=== PATIENT | female | born 1945 | race Caucasian/White ===

== ENCOUNTER 2016-06-24 13:11 | Emergency (ER) | payer OTHER ==
--- NOTE | 2016-06-24 14:08 | ED NURSING NOTES ---
Clinical Report - Nurses [place] [address] [place] [address] 06/24/2016 13:12 [id number] Triage time 13:15 Jun 24 2016. Acuity: LEVEL 3. Chief Complaint: (Hip and (R) Leg Pain). Alert. SEPSIS SCREEN: Sepsis Screen. Negative (no infection suspected/documented). TOMASZ COMA SCORE: Tomasz Coma Scale: 15- eyes open spontaneously (4); best verbal response- oriented x 4 (5); best motor response- obeys commands (6). --13:37 Pedro Cornejo R.N. 13:24 06/24/16. BP: 152/80. HR: 80. RR: 16. O2 saturation: 99%. Temp: 99 F. Pain level now: 08/16. --13:37 Pedro Cornejo R.N. Weight: 48.5 kg stated. Height/Length: 61 inches Per Patient. BMI: 20.2. --13:23 Pedro Cornejo R.N. Medications Albuterol-Ipratropium Inhalation, prn. Carvedilol Oral, daily. --13:26 Pedro Cornejo R.N. Lisinopril Oral. Motrin Oral 400 mg, as needed. Zofran Oral, as needed. --13:26 Pedro Cornejo R.N. Imuran Oral 100 mg, daily. --13:26 Pedro Cornejo R.N. Potassium Chloride Oral 10 meq, 3 x weekly. --13:26 Pedro Cornejo R.N. Hydrochlorothiazide Oral 25 mg, daily. --13:27 Pedro Cornejo R.N. Allergies Penicillins. Definite Moderate(hives, SOB) --13:26 Pedro Cornejo R.N. Medication/allergy information source: the patient. --13:37 Pedro Cornejo R.N. History Arrived by private vehicle. Historian: patient. Accompanied by family. Primary physician (Shravan Elias). ( Hip and (R) Leg Pain, which pt attributes to a strain about one week ago when she was trying to move a heavy chicken coop.). Onset. (about 1 week ago). She has had trouble walking. She has had moderate right leg pain. History of recent trauma (moderate)- lifting injury (since 1 week ago). Occurred at home. 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 Symptoms did not improve after treatment. PAST MEDICAL HX: Tetanus status: up-to-date. Immunizations: has received pneumonia vaccine. The patient has had a hysterectomy. SOCIAL HX: Never smoker. No alcohol use or drug use. No infectious disease exposure. ABUSE ASSESSMENT: No report of abuse. FALL RISK ASSESSMENT: Fall risk assessment completed. No fall risk identified. NUTRITIONAL RISK ASSESSMENT: The nutritional risk assessment revealed no deficiencies. FUNCTIONAL ASSESSMENT: Functional assessment: no impairments noted. LEARNING NEEDS ASSESSMENT: The learning needs assessment revealed no barriers. SKIN INTEGRITY ASSESSMENT: Skin integrity risk assessment completed. No skin integrity risk identified. --13:37 Pedro Cornejo R.N. PROBLEMS: Mucous Membrane Pemphigoid (autoimmune disease). Hypokalemia. Neutropenia. Hypertension. Immunizations. Asthma. Mucous membrane disease with ocular involvement. Multiple Sclerosis. --13:31 Pedro Cornejo R.N. ADDITIONAL SURGERIES: Adenoidectomy. Appendectomy. Hysterectomy. Oophorectomy. Salpingectomy. Tonsillectomy. --13:31 Pedro Cornejo R.N. Interventions ID band on patient. To treatment room. --13:37 Pedro Cornejo R.N. PHYSICAL ASSESSMENT Ambulatory to room. GENERAL / NEURO / PSYCH: Alert. Oriented X 4. Appears in pain. RESPIRATORY: Respirations not labored. CVS: Normal heart rate and rhythm. GI / : Abdomen soft. Bowel sounds within normal limits. EXTREMITIES: Sensation intact in extremities. ROM of extremities within normal limits. --13:38 Pedro Cornejo R.N. NURSING PROGRESS NOTES Patient gowned. Reassurance given. Patient identifiers checked. Call light placed in reach. Side rails up. Bed placed in lowest position. Brakes of bed on. Patient ready for evaluation- chart flagged and PA notified. --13:38 Pedro Cornejo R.N. 13:41 06/24/2016 Hydrocodone-APAP (Hydrocodone-Acetaminophen) PO 5/325 mg Tablets 2 tab given. Allergies verified, confirmed 5 rights and sedative warning given to the patient. --13:56 Pedro Cornejo R.N. DISPOSITION / DISCHARGE Departure time: 1420. --14:57 Pedro Cornejo R.N. 14:15 06/24/16. BP: 159/79. HR: 81. RR: 16. O2 saturation: 96% on room air. Temp: 98.9 F (oral). Pain level now: 05/16. --14:59 Pedro Cornejo R.N. 14:20. Condition at departure: improved. No learning barriers present. Discharge instructions provided and reviewed with the patient. Reviewed medication(s) dosing information (prescription given to pt). Reviewed referral to family practice for followup. Patient verbalized understanding. Written instructions provided in Tongan. The patient was discharged by the physician. She was discharged home and accompanied by family. She left the Emergency Department ambulatory and via private vehicle. Family member driving. --15:01 Pedro Cornejo R.N. Locked/Released at 06/24/2016 15:01 by Pedro Cornejo R.N.
--- NOTE | 2016-06-24 14:08 | ED ORDER SUMMARY ---
..... Patient: LO OROZCO OrderSheet [facility] VisitID: [id number] [address] [place] [address] 71y, F Registration Date/Time: 06/24/2016 ORDER SHEET Weight: 48.5 kg (stated) Allergies: Penicillins GENERAL ORDERS: MEDICATION ORDERS: Hydrocodone-APAP PO 10/650 mg (NOW, HIGH ALERT MEDICATION) (13:41 06/24/2016 Rajwinder Pulido) (13:56 Chauncey Fowler) IV FLUIDS: ORDER SHEET NOTES: [Electronically signed by Pedro Cornejo R.N. (15:01 06/24/2016)] [Electronically signed by Dahlia Sandoval P.A.-C (16:16 06/24/2016)] [Electronically locked/signed by Pedro Cornejo R.N. (15:01 06/24/2016)]
--- NOTE | 2016-06-24 14:08 | ED ORDER SUMMARY ---
..... Patient: LO OROZCO OrderSheet [facility] VisitID: [id number] [address] [place] [address] 71y, F Registration Date/Time: 06/24/2016 ORDER SHEET Weight: 48.5 kg (stated) Allergies: Penicillins GENERAL ORDERS: MEDICATION ORDERS: Hydrocodone-APAP PO 10/650 mg (NOW, HIGH ALERT MEDICATION) (13:41 06/24/2016 Rajwinder Pulido) (13:56 Chauncey Fowler) IV FLUIDS: ORDER SHEET NOTES: [Electronically signed by Pedro Cornejo R.N. (15:01 06/24/2016)] [Electronically signed by Dahlia Sandoval P.A.-C (16:16 06/24/2016)] [Electronically locked/signed by Pedro Cornejo R.N. (15:01 06/24/2016)]
--- NOTE | 2016-06-24 14:08 | ED CLINICAL REPORT ---
Clinical Report - Physicians/Mid Levels [facility] [address] [place] [address] 06/24/2016 13:12 Patient: LO OROZCO Time Seen: 13:53 Jun 24 2016. Arrived- By private vehicle. Historian- patient. HISTORY OF PRESENT ILLNESS Chief Complaint: BACK PAIN. Onset- 1 weeks and it is still present. It is described as being in the area of the right lower lumbar spine and radiating (paresthesias to posterior aspect of leg, into great toe). The location is not the right SI joint area. The quality is noted to be "pain". No bladder dysfunction, bowel dysfunction, sensory loss or motor loss. Additional history - Lifting injury 7 days prior now with pain since incident for 7 days. reports pain radiates to the lower aspect. Pain worsens with movement. No diff urinating. Patient notes an injury. REVIEW OF SYSTEMS No fever, difficulty with urination, urinary frequency, sore throat or cough. No chest pain, abdominal pain, nausea or diarrhea. All systems otherwise negative, except as recorded above. PAST HISTORY Has not had prior back pain. Problems: Mucous Membrane Pemphigoid (autoimmune disease). Hypokalemia. Fever. Neutropenia. Hypertension. Immunizations. Asthma. Mucous membrane disease with ocular involvement. Diabetes Mellitus. Multiple Sclerosis. Additional Surgeries: Adenoidectomy. Appendectomy. Hysterectomy. Oophorectomy. Salpingectomy. Tonsillectomy. Medications: Hydrochlorothiazide Oral 25 mg, daily. Potassium Chloride Oral 10 meq, 3 x weekly. Imuran Oral 100 mg, daily. Lisinopril Oral. Motrin Oral 400 mg, as needed. Zofran Oral, as needed. Albuterol-Ipratropium Inhalation, prn. Carvedilol Oral, daily. Allergies: Penicillins. Definite Moderate(hives, SOB). SOCIAL HISTORY Never smoker. No alcohol use or drug use. ADDITIONAL NOTES The nursing notes have been reviewed. PHYSICAL EXAM Vital Signs: 06/24/2016 13:24 BP: 152/80. HR: 80. RR: 16. O2 saturation: 99%. Temp: 99 F. Pain level now: 08/16. Appearance: Alert. Neck: Normal inspection. Neck nontender. CVS: Heart sounds normal. Pulses normal. Respiratory: No respiratory distress. Breath sounds normal. Abdomen: No visible injury. No abdominal tenderness or rebound tenderness. Back: Soft tissue tenderness. No vertebral point tenderness, CVA tenderness or limitation in ROM. Skin: Skin warm. Neuro: Oriented X 3. Mood/affect normal. No motor deficit. No sensory deficit. Reflex exam: right patellar 2+, left patellar 2+, right Achilles 2+ and left Achilles 2+. Normal gait. PROGRESS AND PROCEDURES Course of Care: patient with pain ongoing over the last almost 2 weeks, as referred her daughter, has previously been seen with her PCP, the paresthesias has developed over the last 7 days. She has no saddle anesthesia. Good distal sensation. Good distal reflexes. Be on her diabetes and advanced age, no otherwise red flags. No recent fall or trauma, to suspect fracture. At this time patient can refer to follow-up with her primary care provider. There are no risks for spinal epidural abscess or hematoma as patient is without any risk factors such as IVDA or evidence of active infection, no midline tenderness to percussion. Hence I do not feel emergent imaging with an MRI is indicated. However I did discuss with the patient that if these symptoms develop, or if the pain does not resolve an MRI may need to be done outpatient, or in the ED if symptoms worsen acutely or new onset of the above mentioned symptoms develop. Patient is stable. CLINICAL IMPRESSION Acute lumbar strain. INSTRUCTIONS Apply ice. Prescription Medications: Hydrocodone/APAP 7.5mg / 325mg: take 1 orally every 6 hours as needed for pain. Dispense fifteen (15). No refill. Flexeril 10 mg: take 1 orally every 8 hours for 3 days as needed for muscle spasm. Dispense ten (10). No refills. Substitution is permissible. Follow-up: Follow up with your doctor Thursday as needed. (Electronically signed by Dahlia Sandoval P.A.-C 06/24/2016 16:16)
--- NOTE | 2016-06-24 14:08 | ED NURSING NOTES ---
Clinical Report - Nurses [place] [address] [place] [address] 06/24/2016 13:12 [id number] Triage time 13:15 Jun 24 2016. Acuity: LEVEL 3. Chief Complaint: (Hip and (R) Leg Pain). Alert. SEPSIS SCREEN: Sepsis Screen. Negative (no infection suspected/documented). TOMASZ COMA SCORE: Tomasz Coma Scale: 15- eyes open spontaneously (4); best verbal response- oriented x 4 (5); best motor response- obeys commands (6). --13:37 Pedro Cornejo R.N. 13:24 06/24/16. BP: 152/80. HR: 80. RR: 16. O2 saturation: 99%. Temp: 99 F. Pain level now: 08/16. --13:37 Pedro Cornejo R.N. Weight: 48.5 kg stated. Height/Length: 61 inches Per Patient. BMI: 20.2. --13:23 Pedro Cornejo R.N. Medications Albuterol-Ipratropium Inhalation, prn. Carvedilol Oral, daily. --13:26 Pedro Cornejo R.N. Lisinopril Oral. Motrin Oral 400 mg, as needed. Zofran Oral, as needed. --13:26 Pedro Cornejo R.N. Imuran Oral 100 mg, daily. --13:26 Pedro Cornejo R.N. Potassium Chloride Oral 10 meq, 3 x weekly. --13:26 Pedro Cornejo R.N. Hydrochlorothiazide Oral 25 mg, daily. --13:27 Pedro Cornejo R.N. Allergies Penicillins. Definite Moderate(hives, SOB) --13:26 Pedro Cornejo R.N. Medication/allergy information source: the patient. --13:37 Pedro Cornejo R.N. History Arrived by private vehicle. Historian: patient. Accompanied by family. Primary physician (Shravan Elias). ( Hip and (R) Leg Pain, which pt attributes to a strain about one week ago when she was trying to move a heavy chicken coop.). Onset. (about 1 week ago). She has had trouble walking. She has had moderate right leg pain. History of recent trauma (moderate)- lifting injury (since 1 week ago). Occurred at home. 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 Symptoms did not improve after treatment. PAST MEDICAL HX: Tetanus status: up-to-date. Immunizations: has received pneumonia vaccine. The patient has had a hysterectomy. SOCIAL HX: Never smoker. No alcohol use or drug use. No infectious disease exposure. ABUSE ASSESSMENT: No report of abuse. FALL RISK ASSESSMENT: Fall risk assessment completed. No fall risk identified. NUTRITIONAL RISK ASSESSMENT: The nutritional risk assessment revealed no deficiencies. FUNCTIONAL ASSESSMENT: Functional assessment: no impairments noted. LEARNING NEEDS ASSESSMENT: The learning needs assessment revealed no barriers. SKIN INTEGRITY ASSESSMENT: Skin integrity risk assessment completed. No skin integrity risk identified. --13:37 Pedro Cornejo R.N. PROBLEMS: Mucous Membrane Pemphigoid (autoimmune disease). Hypokalemia. Neutropenia. Hypertension. Immunizations. Asthma. Mucous membrane disease with ocular involvement. Multiple Sclerosis. --13:31 Pedro Cornejo R.N. ADDITIONAL SURGERIES: Adenoidectomy. Appendectomy. Hysterectomy. Oophorectomy. Salpingectomy. Tonsillectomy. --13:31 Pedro Cornejo R.N. Interventions ID band on patient. To treatment room. --13:37 Pedro Cornejo R.N. PHYSICAL ASSESSMENT Ambulatory to room. GENERAL / NEURO / PSYCH: Alert. Oriented X 4. Appears in pain. RESPIRATORY: Respirations not labored. CVS: Normal heart rate and rhythm. GI / : Abdomen soft. Bowel sounds within normal limits. EXTREMITIES: Sensation intact in extremities. ROM of extremities within normal limits. --13:38 Pedro Cornejo R.N. NURSING PROGRESS NOTES Patient gowned. Reassurance given. Patient identifiers checked. Call light placed in reach. Side rails up. Bed placed in lowest position. Brakes of bed on. Patient ready for evaluation- chart flagged and PA notified. --13:38 Pedro Cornejo R.N. 13:41 06/24/2016 Hydrocodone-APAP (Hydrocodone-Acetaminophen) PO 5/325 mg Tablets 2 tab given. Allergies verified, confirmed 5 rights and sedative warning given to the patient. --13:56 Pedro Cornejo R.N. DISPOSITION / DISCHARGE Departure time: 1420. --14:57 Pedro Cornejo R.N. 14:15 06/24/16. BP: 159/79. HR: 81. RR: 16. O2 saturation: 96% on room air. Temp: 98.9 F (oral). Pain level now: 05/16. --14:59 Pedro Cornejo R.N. 14:20. Condition at departure: improved. No learning barriers present. Discharge instructions provided and reviewed with the patient. Reviewed medication(s) dosing information (prescription given to pt). Reviewed referral to family practice for followup. Patient verbalized understanding. Written instructions provided in Malagasy. The patient was discharged by the physician. She was discharged home and accompanied by family. She left the Emergency Department ambulatory and via private vehicle. Family member driving. --15:01 Pedro Cornejo R.N. Locked/Released at 06/24/2016 15:01 by Pedro Cornejo R.N.
--- NOTE | 2016-06-24 16:16 | ED MAR SUMMARY ---
..... Medication Administration Record [facility] [address] [place] [address] Patient: LO OROZCO Visit ID: [id number] 71y, F Weight: 48.5 kg Height/Length: 61 in BMI: 20.2 ALLERGIES: Penicillins Given 13:41 06/24/2016 Pedro Cornejo R.N. Medication Administered: HYDROCODONE-APAP [PO] (HYDROCODONE-ACETAMINOPHEN), Dose: 2 tab 5/325 mg Tablets PO. Medication Ordered: Hydrocodone-APAP PO 10/650 mg (NOW, HIGH ALERT MEDICATION).
--- NOTE | 2016-06-24 16:16 | ED MAR SUMMARY ---
..... Medication Administration Record [facility] [address] [place] [address] Patient: LO OROZCO Visit ID: [id number] 71y, F Weight: 48.5 kg Height/Length: 61 in BMI: 20.2 ALLERGIES: Penicillins Given 13:41 06/24/2016 Pedro Cornejo R.N. Medication Administered: HYDROCODONE-APAP [PO] (HYDROCODONE-ACETAMINOPHEN), Dose: 2 tab 5/325 mg Tablets PO. Medication Ordered: Hydrocodone-APAP PO 10/650 mg (NOW, HIGH ALERT MEDICATION).
--- NOTE | 2016-06-24 16:16 | ED MED RECONCILIATION SUMMARY ---
Patient: LO OROZCO Medication Reconciliation Report [facility] VisitID: [id number] [address] [place] [address] 71y, F Registration Date/Time: 06/24/2016 Weight: 48.5 kg Height/Length: 61 in. BMI: 20.2 ALLERGIES: Penicillins The patient's Home Medications are listed below: THE FOLLOWING MEDICATIONS NEED TO BE RECONCILED: Albuterol-Ipratropium Inhalation, prn Carvedilol Oral, daily Hydrochlorothiazide Oral 25 mg, daily Imuran Oral 100 mg, daily Lisinopril Oral Motrin Oral 400 mg Potassium Chloride Oral 10 meq, 3 x weekly Zofran Oral The source(s) of the original Home Medication information: patient The following Medications were given to the patient in the Emergency Department: Hydrocodone-APAP [PO] PO 2 tab, administered: 06/24/2016 1:41:00 PM The following Medications were prescribed to the patient: Hydrocodone/APAP 7.5mg / 325mg: take 1 orally every 6 hours as needed for pain. Dispense fifteen (15). No refill. -- Dahlia Sandoval, P.A.-C Flexeril 10 mg: take 1 orally every 8 hours for 3 days as needed for muscle spasm. Dispense ten (10). No refills. Substitution is permissible. -- Dahlia Sandoval, P.A.-C
--- NOTE | 2016-06-24 16:16 | ED DISCHARGE INSTRUCTIONS ---
Patient: LO OROZCO General Instructions [facility] VisitID: [id number] [place] [address] 71y, F Registration Date/Time: 06/24/2016 Acute lumbar strain. INSTRUCTIONS Apply ice. Prescription Medications: Hydrocodone/APAP 7.5mg / 325mg: take 1 orally every 6 hours as needed for pain. Dispense fifteen (15). No refill. Flexeril 10 mg: take 1 orally every 8 hours for 3 days as needed for muscle spasm. Dispense ten (10). No refills. Substitution is permissible. Follow-up: Follow up with your doctor Thursday as needed. ADDITIONAL INFORMATION Sciatica Sciatica ("Lumbar Radiculopathy") causes a pain that spreads from the lower back down into the buttock, hip and leg. Sometimes leg pain can occur without any back pain. Sciatica is due to irritation or pressure on a spinal nerve as it comes out of the spinal canal. This is most often due to a bulge or rupture of a nearby spinal disk (the cartilage cushion between each spinal bone), which presses on a nearby nerve. Other causes include spinal stenosis (narrowing of the spinal canal) and spasm of the pyriform muscle (a muscle in the buttocks that the sciatic nerve passes through). Sciatica may begin after a sudden twisting/bending force (such as in a car accident), or sometimes after a simple awkward movement. In either case, muscle spasm is commonly present and contributes to the pain. The diagnosis of sciatica is made from the symptoms and physical exam. Unless you had a physical injury (such as a car accident or fall), X-rays are usually not ordered for the initial evaluation of sciatica because the nerves and disks cannot be seen on an x-ray. If signs of a compressed nerve are present (for example, loss of tendon reflex or strength in the leg), an MRI (magnetic resonance imaging) scan will need to be scheduled as an outpatient. Most sciatica (80-90%) gets better with medicine, exercise, physical therapy. If symptoms continue after at least three months of medical treatment, surgery may be considered. Home Care: You may need to stay in bed the first few days. But, as soon as possible, begin sitting or walking to avoid problems with prolonged bed rest. When in bed, try to find a position of comfort. A firm mattress is best. Try lying flat on your back with pillows under your knees. You can also try lying on your side with your knees bent up towards your chest and a pillow between your knees. Avoid prolonged sitting. This puts more stress on the lower back than standing or walking. Some persons find relief with heat (hot shower, hot bath or heating pad) and massage, while others prefer cold packs (crushed or cubed ice in a plastic bag, wrapped in a towel). Try both and use the method that feels best for 20 minutes several times a day. You may use acetaminophen (Tylenol) or ibuprofen (Motrin, Advil) to control pain, unless another pain medicine was prescribed. [ NOTE: If you have chronic liver or kidney disease or ever had a stomach ulcer or GI bleeding, talk with your doctor before using these medicines.] Be aware of safe lifting methods and do not lift anything over 15 pounds until all the pain is gone. Follow Up with your doctor or this facility if your symptoms do not start to improve after one week. Physical therapy or further testing may be needed. [NOTE: If X-rays were taken, they will be reviewed by a radiologist. You will be notified of any new findings that may affect your care.] Get Prompt Medical Attention if any of the following occur: Pain becomes worse, not controlled by the prescribed medicine Weakness or numbness in one or both legs Numbness in the groin, genital area Loss of bowel or bladder control Hydrocodone Bitartrate, Acetaminophen Oral tablet What is this medicine? ACETAMINOPHEN; HYDROCODONE (a set a XOCHITL manjeet fen; shalonda droe KOE done) is a pain reliever. It is used to treat mild to moderate pain. How should I use this medicine? Take this medicine by mouth. Swallow it with a full glass of water. Follow the directions on the prescription label. If the medicine upsets your stomach, take the medicine with food or milk. Do not take more than you are told to take. Talk to your director of litigation regarding the use of this medicine in children. This medicine is not approved for use in children. What side effects may I notice from receiving this medicine? Side effects that you should report to your doctor or health overnight caregiver as soon as possible: allergic reactions like skin rash, itching or hives, swelling of the face, lips, or tongue breathing problems confusion feeling faint or lightheaded, falls stomach pain yellowing of the eyes or skin Side effects that usually do not require medical attention (report to your doctor or health overnight caregiver if they continue or are bothersome): nausea, vomiting stomach upset What may interact with this medicine? alcohol antihistamines isoniazid medicines for depression, anxiety, or psychotic disturbances medicines for sleep muscle relaxants naltrexone narcotic medicines (opiates) for pain phenobarbital ritonavir tramadol What if I miss a dose? If you miss a dose, take it as soon as you can. If it is almost time for your next dose, take only that dose. Do not take double or extra doses. Where should I keep my medicine? Keep out of the reach of children. This medicine can be abused. Keep your medicine in a safe place to protect it from theft. Do not share this medicine with anyone. Selling or giving away this medicine is dangerous and against the law. Store at room temperature between 15 and 30 degrees C (59 and 86 degrees F). Protect from light. Keep container tightly closed. Throw away any unused medicine after the expiration date. Discard unused medicine and used packaging carefully. Pets and children can be harmed if they find used or lost packages. What should I tell my health care provider before I take this medicine? They need to know if you have any of these conditions: brain tumor Crohn's disease, inflammatory bowel disease, or ulcerative colitis drink more than 3 alcohol-containing drinks per day drug abuse or addiction head injury heart or circulation problems kidney disease or problems going to the bathroom liver disease lung disease, asthma, or breathing problems an unusual or allergic reaction to acetaminophen, hydrocodone, other opioid analgesics, other medicines, foods, dyes, or preservatives or trying to get breast-feeding What should I watch for while using this medicine? Tell your doctor or health overnight caregiver if your pain does not go away, if it gets worse, or if you have new or a different type of pain. You may develop tolerance to the medicine. Tolerance means that you will need a higher dose of the medicine for pain relief. Tolerance is normal and is expected if you take the medicine for a long time. Do not suddenly stop taking your medicine because you may develop a severe reaction. Your body becomes used to the medicine. This does NOT mean you are addicted. Addiction is a behavior related to getting and using a drug for a non-medical reason. If you have pain, you have a medical reason to take pain medicine. Your doctor will tell you how much medicine to take. If your doctor wants you to stop the medicine, the dose will be slowly lowered over time to avoid any side effects. You may get drowsy or dizzy when you first start taking the medicine or change doses. Do not drive, use machinery, or do anything that may be dangerous until you know how the medicine affects you. Stand or sit up slowly. There are different types of narcotic medicines (opiates) for pain. If you take more than one type at the same time, you may have more side effects. Give your health care provider a list of all medicines you use. Your doctor will tell you how much medicine to take. Do not take more medicine than directed. Call emergency for help if you have problems breathing. The medicine will cause constipation. Try to have a bowel movement at least every 2 to 3 days. If you do not have a bowel movement for 3 days, call your doctor or health overnight caregiver. Too much acetaminophen can be very dangerous. Do not take Tylenol (acetaminophen) or medicines that contain acetaminophen with this medicine. Many non-prescription medicines contain acetaminophen. Always read the labels carefully. Cyclobenzaprine Hydrochloride Oral tablet What is this medicine? CYCLOBENZAPRINE (italo goodson) is a muscle relaxer. It is used to treat muscle pain, spasms, and stiffness. How should I use this medicine? Take this medicine by mouth with a glass of water. Follow the directions on the prescription label. If this medicine upsets your stomach, take it with food or milk. Take your medicine at regular intervals. Do not take it more often than directed. Talk to your director of litigation regarding the use of this medicine in children. Special care may be needed. What side effects may I notice from receiving this medicine? Side effects that you should report to your doctor or health overnight caregiver as soon as possible: allergic reactions like skin rash, itching or hives, swelling of the face, lips, or tongue chest pain fast heartbeat hallucinations seizures vomiting Side effects that usually do not require medical attention (report to your doctor or health overnight caregiver if they continue or are bothersome): headache What may interact with this medicine? Do not take this medicine with any of the following medications: cisapride droperidol flecainide grepafloxacin halofantrine levomethadyl MAOIs like Carbex, Eldepryl, Marplan, Nardil, and Parnate nilotinib pimozide probucol sertindole This medicine may also interact with the following medications: abarelix alcohol contrast dyes dolasetron guanethidine medicines for cancer medicines for depression, anxiety, or psychotic disturbances medicines to treat an irregular heartbeat medicines used for sleep or numbness during surgery or procedure methadone octreotide ondansetron palonosetron phenothiazines like chlorpromazine, mesoridazine, prochlorperazine, thioridazine some medicines for infection like alfuzosin, chloroquine, clarithromycin, levofloxacin, mefloquine, pentamidine, troleandomycin tramadol vardenafil What if I miss a dose? If you miss a dose, take it as soon as you can. If it is almost time for your next dose, take only that dose. Do not take double or extra doses. Where should I keep my medicine? Keep out of the reach of children. Store at room temperature between 15 and 30 degrees C (59 and 86 degrees F). Keep container tightly closed. Throw away any unused medicine after the expiration date. What should I tell my health care provider before I take this medicine? They need to know if you have any of these conditions: heart disease, irregular heartbeat, or previous heart attack liver disease thyroid problem an unusual or allergic reaction to cyclobenzaprine, tricyclic antidepressants, lactose, other medicines, foods, dyes, or preservatives or trying to get breast-feeding What should I watch for while using this medicine? Check with your doctor or health overnight caregiver if your condition does not improve within 1 to 3 weeks. You may get drowsy or dizzy when you first start taking the medicine or change doses. Do not drive, use machinery, or do anything that may be dangerous until you know how the medicine affects you. Stand or sit up slowly. Your mouth may get dry. Drinking water, chewing sugarless gum, or sucking on hard candy may help. You have been given the following additional information: Back Pain W/ Sciatica Hydrocodone Bitartrate, Acetaminophen Oral tablet Cyclobenzaprine Hydrochloride Oral tablet (Electronically signed by Dahlia Sandoval P.A.-C 06/24/2016 16:16)
--- NOTE | 2016-06-24 16:16 | ED MED RECONCILIATION SUMMARY ---
Patient: LO OROZCO Medication Reconciliation Report [facility] VisitID: [id number] [address] [place] [address] 71y, F Registration Date/Time: 06/24/2016 Weight: 48.5 kg Height/Length: 61 in. BMI: 20.2 ALLERGIES: Penicillins The patient's Home Medications are listed below: THE FOLLOWING MEDICATIONS NEED TO BE RECONCILED: Albuterol-Ipratropium Inhalation, prn Carvedilol Oral, daily Hydrochlorothiazide Oral 25 mg, daily Imuran Oral 100 mg, daily Lisinopril Oral Motrin Oral 400 mg Potassium Chloride Oral 10 meq, 3 x weekly Zofran Oral The source(s) of the original Home Medication information: patient The following Medications were given to the patient in the Emergency Department: Hydrocodone-APAP [PO] PO 2 tab, administered: 06/24/2016 1:41:00 PM The following Medications were prescribed to the patient: Hydrocodone/APAP 7.5mg / 325mg: take 1 orally every 6 hours as needed for pain. Dispense fifteen (15). No refill. -- Dahlia Sandoval, P.A.-C Flexeril 10 mg: take 1 orally every 8 hours for 3 days as needed for muscle spasm. Dispense ten (10). No refills. Substitution is permissible. -- Dahlia Sandoval, P.A.-C
== END 2016-06-24 14:20 | disposition home or self-care (01) ==
LOC: ED SRH 13:11
DX: S39.012A Strain of muscle, fascia and tendon of lower back, initial encounter (principal); X50.0XXA Overexertion from strenuous movement or load, initial encounter; Y93.89 Activity, other specified; Y99.9 Unspecified external cause status; Y92.9 Unspecified place or not applicable; I10 Essential (primary) hypertension; E11.9 Type 2 diabetes mellitus without complications; G35 Multiple sclerosis; Z90.710 Acquired absence of both cervix and uterus; J45.909 Unspecified asthma, uncomplicated